=== PATIENT | female | born 1995 | race American Indian/Alaskan Native ===

== ENCOUNTER 2017-07-08 12:19 | Emergency (ER) | payer OTHER ==
[2017-07-08 12:50] VITALS: BP 127/67
[2017-07-08] MEDS ORDERED: DECADRON IM ONE (13:35)
--- NOTE | 2017-07-08 13:38 | Emergency Department Report ---
Minor Respiratory - HPI Chief Complaint: Sore Throat Stated Complaint: SORETHROAT X1 WK Time Seen by Provider: 07/08/17 13:32 Duration: 5 Days Pain Location: Throat Severity: mild Minor Respiratory: Yes Sore Throat, Yes Able to Tolerate Fluids, Yes Sick Contacts, No Rhinorrhea, No Ear Pain, No Cough, No Hemoptysis, No Chest Pain, No Shortness of Breath, No Fever ED Review of Systems ROS: Stated complaint: SORETHROAT X1 WK Other details as noted in HPI Comment: All other systems reviewed and negative ENT: throat pain ED Past Medical Hx - Past Medical History Previous Medical History?: No - Surgical History Past Surgical History?: No - Social History Smoking Status: Never Smoker Substance Use Type: None - Medications Home Medications: Home Medications Medication Instructions Recorded Confirmed Last Taken Type Amoxicillin 500 mg PO BID #20 capsule 07/08/17 Unknown Rx Minor Respiratory Exam - Exam General: Vital signs noted. No distress. Alert and acting appropriately. HEENT: Yes Pharyngeal Erythema, Yes Moist Mucous Membranes, No Pharyngeal Exudates, No Rhinorrhea, No Conjuctival Injection, No Frontal Tenderness, No Maxillary Tenderness Ear: Neither TM Bulge, Neither TM Erythema, Neither EAC Pain, Neither EAC Discharge Neck: Yes Supple, No Adenopathy Lungs: Yes Good Air Exchange, No Wheezes, No Ronchi, No Stridor, No Cough, No Labored Respirations, No Retractions, No Use of Accessory Muscles, No Other Abnormal Lung Sounds Heart: Yes Regular, No Murmur Abdomen: Yes Normal Bowel Sounds, No Tenderness, No Peritoneal Signs Skin: No Rash, No Edema Neurologic: Alert and oriented, no deficits. Musculoskeletal: Unremarkable. ED Course Vital Signs 07/08/17 12:48 Temperature 98.8 F Pulse Rate 91 H Respiratory 16 Rate Blood Pressure 127/67 O2 Sat by Pulse 100 Oximetry - Reevaluation(s) Reevaluation #1: 07/08/17 13:37 TO ER W SORE THROAT SICK CHILD AT HOME VSS NON TOXIC NON ILL NO FEBRILE MEDICATED AND DC W HOME DC POC ED Medical Decision Making - Medical Decision Making SEE NOTE - Differential Diagnosis URTI Critical care attestation.: If time is entered above; I have spent that time in minutes in the direct care of this critically ill patient, excluding procedure time. ED Disposition Clinical Impression: Pharyngitis Disposition: DC- TO HOME OR SELFCARE Is pt being admited?: No Does the pt Need Aspirin: No Condition: Stable Instructions: Pharyngitis (ED) Additional Instructions: REST FLUIDS [employer] W[employer]ING NEW TOOTH BRUSH MED ORDERED UNTIL GONE MOTRIN OR TYLENOL FOR PAIN OR FEVER Prescriptions: Amoxicillin 500 mg PO BID #20 capsule Time of Disposition: 13:36
== END 2017-07-08 15:01 | disposition home or self-care (01) ==
LOC: ED 12:19
DX: J02.9 Acute pharyngitis, unspecified (principal)
CPT/HCPCS: 96372; 99282; J1100

== ENCOUNTER 2019-03-02 18:09 | Emergency (ER) | payer OTHER ==
[2019-03-02 18:27] VITALS: BP 111/68
--- NOTE | 2019-03-02 18:27 | Event Note ---
ED Screening Note ED Screening Note: HERE FOR HEAVY VAG BLEED FOR THE LAST MONTH DOES NOT KNOW IF PREG ALSO HERPES OUTBREAK WORRIED FOR STD WELL PMH NONE PSH NONE RX NONE ETOH THC This initial assessment/diagnostic orders/clinical plan/treatment(s) is/are subject to change based on patients health status, clinical progression and re- assessment by fellow clinical providers in the ED. Further treatment and workup at subsequent clinical providers discretion. Patient/guardian urged not to elope from the ED as their condition may be serious if not clinically assessed and managed. Initial orders include: UA RO PREG ?STI
[2019-03-02 19:03] LABS: Mean Corpuscular HGB Conc 36 % (30-34); Mean Corpuscular Volume 91 fl (79-97); Platelet Count 330 K/mm3 (140-440); Red Blood Count 4.59 M/mm3 (3.65-5.03); Red Cell Distribution Width 11.9 % (13.2-15.2)
[2019-03-02 19:13] LABS: Hematocrit 41.7 % (30.3-42.9); Hemoglobin 15.2 gm/dl (10.1-14.3)
[2019-03-02 19:24] LABS: BUN/Creatinine Ratio 19; Blood Urea Nitrogen 17 mg/dL (7-17); Calcium 9.5 mg/dL (8.4-10.2); Hemolysis Index 96
[2019-03-02 19:54] LABS: Bilirubin,Urine NEG (Negative); Blood,Urine NEG (Negative); Color,Urine Yellow (Yellow); Mucus,Urine 1+ /HPF; Protein,Urine <15 mg/dL mg/dL (Negative); RBC,Urine < 1.0 /HPF (0.0-6.0); Urobilinogen,Urine < 2.0 mg/dL (<2.0)
[2019-03-02] MEDS ORDERED: TYLENOL PO ONE (19:55)
[2019-03-02] MEDS ORDERED: TYLENOL ONE (19:58)
[2019-03-02 20:02] LABS: HCG Qualitative,Urine Negative (Negative)
--- NOTE | 2019-03-02 20:49 | Emergency Department Report ---
ED Female HPI - General Chief complaint: Vaginal Bleeding Stated complaint: POSS BLOOD CLOT Time Seen by Provider: 03/02/19 18:25 Source: patient Mode of arrival: Ambulatory Limitations: No Limitations - History of Present Illness Initial comments: Patient 23-year-old Julia female who presents for fashion 2 months patient has history of the generalized history states he started 2 days ago [place], acyclovir patient is out of acyclovir at this time there is no complaint of abdominal pain no nausea vomiting no fever or chills no exace rbating or relieving factors. MD Complaint: vaginal bleeding, other (hsv outbreak ) Onset/Timin -: days(s), unknown (vaginal bleed ing x 2 months ) Severity: moderate Severity scale (0 -10): 3 Quality: burning Consistency: intermittent Improves with: none Worsens with: none Are you Now?: No Last Menstrual Period: 12/10/18 EDC: 09/16/19 Associated Symptoms: vaginal bleeding - Related Data Sexually active: Yes : 0 Para: 0 A: 0 Previous Rx's Medication Instructions Recorded Last Taken Type Amoxicillin 500 mg PO BID #20 capsule 07/08/17 Unknown Rx Acyclovir [Zovirax Tab] 400 mg PO Q8H 10 Days #30 tab 03/02/19 Unknown Rx Ibuprofen [Motrin 800 MG tab] 800 mg PO Q8HR PRN #30 tablet 03/02/19 Unknown Rx Allergies Allergy/AdvReac Type Severity Reaction Status Date / Time No Known Allergies Allergy Unverified 07/08/17 12:47 ED Review of Systems ROS: Stated complaint: POSS BLOOD CLOT Other details as noted in HPI Constitutional: denies: chills, fever Eyes: denies: eye pain, eye discharge, vision change ENT: denies: ear pain, throat pain Respiratory: denies: cough, shortness of breath, wheezing Cardiovascular: denies: chest pain, palpitations Endocrine: no symptoms reported Gastrointestinal: denies: abdominal pain, nausea, vomiting, diarrhea Genitourinary: abnormal menses. denies: urgency, dysuria, frequency, hematuria, discharge Musculoskeletal: denies: back pain, joint swelling, arthralgia Skin: denies: rash, lesions Neurological: denies: headache, weakness, paresthesias Psychiatric: denies: anxiety, depression Hematological/Lymphatic: denies: easy bleeding, easy bruising ED Past Medical Hx - Past Medical History Previous Medical History?: No - Surgical History Past Surgical History?: No - Social History Smoking Status: Never Smoker Substance Use Type: Alcohol, Marijuana - Medications Home Medications: Home Medications Medication Instructions Recorded Confirmed Last Taken Type Amoxicillin 500 mg PO BID #20 capsule 07/08/17 Unknown Rx Acyclovir [Zovirax Tab] 400 mg PO Q8H 10 Days #30 tab 03/02/19 Unknown Rx Ibuprofen [Motrin 800 MG tab] 800 mg PO Q8HR PRN #30 tablet 03/02/19 Unknown Rx ED Physical Exam - General Limitations: No Limitations General appearance: alert, in no apparent distress - Head Head exam: Present: atraumatic, normocephalic - Eye Eye exam: Present: normal appearance, PERRL, EOMI Pupils: Present: normal accommodation - ENT ENT exam: Present: mucous membranes moist - Neck Neck exam: Present: normal inspection, full ROM. Absent: tenderness, ly mphadenopathy, thyromegaly - Respiratory Respiratory exam: Present: normal lung sounds bilaterally. Absent: respiratory distress, wheezes, stridor, chest wall tenderness - Cardiovascular Cardiovascular Exam: Present: regular rate, normal rhythm, normal heart sounds. Absent: systolic murmur, diastolic murmur, rubs, gallop - GI/Abdominal GI/Abdominal exam: Present: soft, normal bowel sounds. Absent: distended, tenderness, guarding, rebound, rigid, bruit, hernia - Rectal Rectal exam: Present: deferred - External exam: Present: other (exam deferred per pt) - Extremities Exam Extremities exam: Present: normal inspection, full ROM, normal capillary refill. Absent: tenderness - Back Exam Back exam: Present: normal inspection, full ROM. Absent: tenderness, CVA tenderness (R), CVA tenderness (L), muscle spasm, paraspinal tenderness, vertebral tenderness, rash noted - Neurological Exam Neurological exam: Present: alert, oriented X3, CN II-XII intact, normal gait, reflexes normal. Absent: motor sensory deficit - Psychiatric Psychiatric exam: Present: normal affect, normal mood - Skin Skin exam: Present: warm, dry, intact, normal color. Absent: rash ED Course Vital Signs 03/02/19 18:25 Temperature 98.4 F Pulse Rate 73 Respiratory 16 Rate Blood Pressure 111/68 O2 Sat by Pulse 99 Oximetry ED Medical Decision Making - Lab Data Result diagrams: 03/02/19 18:34 03/02/19 18:34 Lab Results 03/02/19 03/02/19 03/02/19 Range/Units 18:04 18:34 18:34 WBC 6.7 (4.5-11.0) K/mm3 RBC 4.59 (3.65-5.03) M/mm3 Hgb 15.2 H (10.1-14.3) gm/dl Hct 41.7 (30.3-42.9) % MCV 91 (79-97) fl MCH 33 H (28-32) pg MCHC 36 H (30-34) % RDW 11.9 L (13.2-15.2) % Plt Count 330 (140-440) K/mm3 Sodium 138 (137-145) mmol/L Potassium 4.5 (3.6-5.0) mmol/L Chloride 102.3 (98-107) mmol/L Carbon Dioxide 20 L (22-30) mmol/L Anion Gap 20 mmol/L BUN 17 (7-17) mg/dL Creatinine 0.9 (0.7-1.2) mg/dL Estimated GFR > 60 ml/min BUN/Creatinine Ratio 19 % Glucose 78 (65-100) mg/dL Calcium 9.5 (8.4-10.2) mg/dL Urine Color Yellow (Yellow) Urine Turbidity Clear (Clear) Urine pH 5.0 (5.0-7.0) Ur Specific [place] 1.025 (1.003-1.030) Urine Protein <15 mg/dl (Negative) mg/dL Urine Glucose (UA) Neg (Negative) mg/dL Urine Ketones 80 (Negative) mg/dL Urine Blood Neg (Negative) Urine Nitrite Neg (Negative) Urine Bilirubin Neg (Negative) Urine Urobilinogen < 2.0 (<2.0) mg/dL Ur Leukocyte Esterase Neg (Negative) Urine WBC (Auto) 1.0 (0.0-6.0) /HPF Urine RBC (Auto) < 1.0 (0.0-6.0) /HPF U Epithel Cells (Auto) 1.0 (0-13.0) /HPF Urine Mucus 1+ /HPF Urine HCG, Qual Negative (Negative) - Medical Decision Making this is AUB , HSV outbreak, cbc normal. no fever chills or abd pain plan ibuprofen, acyclovir follow up with [facility] in 2-3 days pt verbalized agreement and understanding of discharge plan Critical care attestation.: If time is entered above; I have spent that time in minutes in the direct care of this critically ill patient, excluding procedure time. ED Disposition Clinical Impression: Abnormal uterine bleeding (AUB) Genital herpes Qualifiers: Herpes simplex infection site: unspecified Qualified Code(s): A60.00 - Herpesviral infection of urogenital system, unspecified Disposition: - TO HOME OR SELFCARE Is pt being admited?: No Does the pt Need Aspirin: No Condition: Stable Instructions: Genital Herpes Simplex (ED), Menorrhagia (ED) Prescriptions: Ibuprofen [Motrin 800 MG tab] 800 mg PO Q8HR PRN #30 tablet PRN Reason: pain Acyclovir [Zovirax Tab] 400 mg PO Q8H 10 Days #30 tab Referrals: [facility] [Provider Group] - 3-5 Days Forms: Work/School Release Form(ED) Time of Disposition: 20:55
== END 2019-03-02 21:03 | disposition home or self-care (01) ==
LOC: ED 18:09
DX: N93.8 Other specified abnormal uterine and vaginal bleeding (principal); A60.00 Herpesviral infection of urogenital system, unspecified; F12.10 Cannabis abuse, uncomplicated; Z79.899 Other long term (current) drug therapy
CPT/HCPCS: 36415; 80048; 81001; 81025; 85027

== ENCOUNTER 2020-06-12 17:41 | Emergency (ER) | payer OTHER | END 2020-06-12 18:52 | disposition left against medical advice (07) | LOC: ED 17:41 | DX: Z20.2 Contact with and (suspected) exposure to infections with a predominantly sexual mode of transmission (principal); Z53.21 Procedure and treatment not carried out due to patient leaving prior to being seen by health care provider ==